=== PATIENT | male | born 1990 | race Caucasian/White ===

== ENCOUNTER 2016-06-02 09:28 | Day surgery (SDC) | payer OTHER ==
--- NOTE | ~2016-06-02 | OP ---
Record Of Operation [facility] [address] [place]. [address] NAME: SHARON MATSON : 89 STATUS : DIS IN PAT#: [id number] AGE: 25 ADM/REG DATE : 06/02/16 MR#: [id number] REPORT SERV DATE: 06/03/16 DICTATED BY: ELA GALLARDO DATE: 06/02/16 REPORT STATUS : Draft TRANSCRIBED BY: MODL DATE: 06/02/16 DATE OF PROCEDURE: PREOPERATIVE DIAGNOSES: Herniated nucleus polyposis, left L4-5 with intractable radiculopathy and dropfoot. POSTOPERATIVE DIAGNOSES: Herniated nucleus polyposis, left L4-5 with intractable radiculopathy and dropfoot (large extrusion). PROCEDURE: 1. Microscopic navigation assisted surgery. 2. Left L4-5 hemilaminotomy and microdiskectomy. SURGEON: Ela Gallardo D.O. [employer]: Darron Bui. ANESTHESIA: General. BLOOD LOSS: 15 mL. INDICATION: Indications for surgery and risks were explained. They are listed in a history and physical, see that for detail. OPERATION: Antibiotic prophylaxis was given. Neurophysiology monitoring leads were inserted. The patient brought to the operative suite. General anesthetic including endotracheal intubation was administered. He was placed prone on a Meek spine frame. Bony prominences were carefully padded. Thoracolumbar spine scrubbed with Hibiclens solution. DuraPrep was painted and sterile drapes applied. Because of the complexity of surgery and the need to identify correct level of surgery intraoperatively as well as desire to carry out the safest most precise dissection, I felt that intraoperative navigation was mandatory. A small stab wound was carried out over the right posterior superior iliac spine and percutaneous pin with navigational frame attached was inserted in PSIS. Intraoperative CT scan with O-arm obtained, CT information used to register the navigational system. With navigational assistance, I identified L4-5 just left of midline, a 2 cm skin incision was carried out. A blunt navigated probe placed through the fascia muscle and docked over the interlaminar space. Muscle dilators were inserted followed by placement of a tubular retractor attached to an arm mount table. The microscope was sterilely draped and used throughout the remainder of the procedure. With navigational assistance, I identified the amount of lamina of L4 that I needed to remove in order to reach the cephalad boundary of the disk space. I removed approximately Record Of Operation [facility] [address] [place]. [address] NAME: SHARON MATSON : 89 STATUS : DIS IN PAT#: [id number] AGE: 25 ADM/REG DATE : 06/02/16 MR#: [id number] REPORT SERV DATE: 06/03/16 DICTATED BY: ELA GALLARDO DATE: 06/02/16 REPORT STATUS : Draft TRANSCRIBED BY: MODL DATE: 06/02/16 30% of the lamina of L4 and approximately 10% of medial facet joint. The lateral ligamentum flavum was elevated and removed. I then localized the disk space itself and I used a pedicle probe and as I was probing in the medial portion of the foramen in the very lateral edge of my wound, I found a disk fragment as I worked distally. I found a very large free fragment which was massive in the medial canal it extended below the pedicle and was causing severe L5 nerve impingement. I then removed the complete large fragment. After the decompression was completed, then the fragment was removed. The nerve was free of any compression. The wound was irrigated. The retractor was removed. No bleeding was noted. The myofascial layer was allowed to reapproximate itself. The subcutaneous tissue closed with 2-0 Vicryl sutures, 2-0 vertical mattress nylon suture used for skin closure. Sterile dressings applied. The patient awakened, extubated, and taken to the recovery room in satisfactory condition having tolerated the procedure well. MESSI/AMITA Ela Gallardo D.O. / [id number] CC: Ela Gallardo D.O.
--- NOTE | ~2016-06-02 | PREOPHP ---
PreOp History and Physical [facility] [address] [place]. [address] NAME: SHARON MATSON : 89 STATUS : ADM IN PAT#: [id number] AGE: 25 ADM/REG DATE : 06/02/16 MR#: [id number] REPORT SERV DATE: 06/02/16 DICTATED BY: PER GALLARDO DATE: 06/02/16 REPORT STATUS : Draft TRANSCRIBED BY: MODL DATE: 06/02/16 CHIEF COMPLAINT: Severe left hip and leg pain. HISTORY OF PRESENT ILLNESS: A 25-year-old male with intractable left hip and leg pain. I was contacted this morning by my physician's medical assistant secretary indicating that he originally saw this patient about a month ago when he started having some back pain and left hip and left thigh pain. Initially, she was able treat it conservatively with medications and exercises etc., but just four days ago, the pain started to markedly increase to the point he is developing weakness in his foot and numbness. She saw him on in the office, gave him IV steroids, and a stronger pain medicine. He came back to the office on Thursday saying the pain was actually no better, but he would try to tough it out through the weekend and then he was there at the office this morning when they opened saying he could not take it another minute, the pain was 10/10. He cannot sleep. He has had no alteration in bowel or bladder function, but the pain is just too intractable, he said he had to do something to take care of the pain because the pain pills including hydrocodone and oxycodone was not working. The patient had an MRI urgently, which shows a massive HNP in the mid foraminal zone and extends medially and impinges not only the traversing L5 nerve, but also impinging on the L4 nerve root. The fragment has come out the medial foraminal zone inferiorly and has gone medial to the pedicle behind the body of L5 causing severe impingement. The patient has a positive straight leg raising and has a drop foot with 3/5 strength. He has had fairly dense L5 radiculopathy and sensory deficit of L5. The patient is admitted due to the intractable pain and also because of the neurologic deficit. I have taken to surgery for a left L4-5 hemilaminotomy and microdiskectomy. I did explain the risks, benefits, alternatives, expectations, including but not limited to infection, and a recurrent disk herniation can occur approximately 10% of the time could require further surgery including another microdiskectomy or even fusion. There is no guarantee this will resolve any or all symptoms. The patient understands there can always be an incidental durotomy. The perioperative complications such as UTI, PE, pneumonia, HI, CVA, etc. Consent form is signed. PAST MEDICAL HISTORY: None. PAST SURGICAL HISTORY: None. CURRENT MEDICATIONS: Hydrocodone and Naprosyn. ALLERGIES: NONE. 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 He does not use any tobacco or alcohol. FAMILY HISTORY: Noncontributory. REVIEW OF SYSTEMS: Otherwise negative. PHYSICAL EXAMINATION: VITAL SIGNS: He is 6 feet, 170 pounds. PreOp History and Physical [address] [address] NAME: SHARON MATSON : 89 STATUS : ADM IN [facility]#: [id number] AGE: 25 ADM/REG DATE : 06/02/16 MR#: [id number] REPORT SERV DATE: 06/02/16 DICTATED BY: PER GALLARDO DATE: 06/02/16 REPORT STATUS : Draft TRANSCRIBED BY: AMITA DATE: 06/02/16 GENERAL: He is alert, cooperative, and well oriented, has acute painful distress. HEENT: Exam is grossly normal. LUNGS: Clear to auscultation. HEART: Rate is regular and rhythmic. ABDOMEN: Soft with good bowel sounds. MUSCULOSKELETAL: The spine has no deformities. He has a markedly positive straight leg raising even at 30 degrees. He has a complete drop foot with strength of only 3/5 at best in L5. He has decreased sensation in L5 distribution. He cannot heel walk. He has no signs of myelopathy. Toes are downgoing. No ankle clonus is found. Orthopedically, he has no pain with moving hips, knees, or ankles. There are pulses in all four extremities. No abnormal skin lesions are found. ASSESSMENT: 1. Acute intractable left leg pain. 2. Large herniated nucleus pulposus, left L4-5 with intractable radiculopathy and drop foot. RECOMMENDATION: As listed above. MESSI/AMITA Per Gallardo D.O. / [id number] CC: Per Gallardo D.O.
[~2016-06-02 09:28] MED LIST: ANTIBIOTIC; LORT7 PO
[2016-06-02 11:20] LABS: BASOPHILS 0.2 %; EOSINOPHILS 1.4 %; HEMOGLOBIN 14.4 g/dL (13.6-17.8); MEAN CORPUS HGB CONC 34.3 g/dL (32.0-36.0); MEAN CORPUSCULAR HEMOGLOB 28.7 pg (26.0-34.0); MEAN PLATELET VOLUME 11.5 fL (9.2-13.0); MONOCYTES 9.8 %; NEUTROPHILS 61.3 %; PLATELET COUNT 206 10/3/uL (150-400); RBC DISTRIBUTION WIDTH 13.1 % (12.0-16.0); RED CELL COUNT 5.02 10/6/uL (4.7-6.1); WHITE BLOOD CELLS 8.9 10/3/uL (4.5-10.5)
[2016-06-02 11:21] LABS: BASOPHILS ABSOLUTE 0.02 10/3/uL (0.0-0.16); EOSINOPHILS ABSOLUTE 0.12 10/3/uL (0.0-0.53); IMMATURE GRANULOCYTES 0.3 %; IMMATURE GRANULOCYTES ABSOLUTE 0.03 10/3/uL (0.0-0.11); LYMPHOCYTES ABSOLUTE 2.39 10/3/uL (0.67-4.30); MANUAL DIFF NO %; MEAN CORPUSCULAR VOLUME 83.7 fL (80-100); MONOCYTES ABSOLUTE 0.87 10/3/uL (0.21-1.20); NEUTROPHILS ABSOLUTE 5.42 10/3/uL (2.02-8.40)
[2016-06-02 11:29] LABS: PARTIAL THROMBO TIME 28.3 SEC (22.5-37.2); PROTIME (NOT ORD) 13.2 SEC (12.0-14.5)
[2016-06-02] MEDS ORDERED: OXYCOD PO (19:52)
[2016-06-02] MEDS ORDERED: METHOC500B PO (19:53)
[2016-06-02] MEDS ORDERED: ANAPROX PO (19:55)
== END 2016-06-02 21:45 | disposition home or self-care (01) ==
LOC: SDC 09:28
PROVIDERS: Orthopaedic Surgery Orthopaedic Surgery of the Spine
PROC: 01NB0ZZ Release Lumbar Nerve, Open Approach (ICD-10-PCS; 2016-06-02)
PROC: 0SB20ZZ Excision of Lumbar Vertebral Disc, Open Approach (ICD-10-PCS; principal; 2016-06-02 11:15)
DX: M51.16 Intervertebral disc disorders with radiculopathy, lumbar region (principal); Z79.899 Other long term (current) drug therapy
CPT/HCPCS: 71020; 85025; 85610; 85730; 88304; 88311; 93005; J0690; J1170; J2250; J2270; J2274; J2405; J2710; J3010